=== PATIENT | male | born 1965 | race Caucasian/White ===

== ENCOUNTER 2016-10-10 18:28 | Emergency (ER) | payer OTHER ==
[2016-10-10 18:32] VITALS: BP 155/97
[2016-10-10] MEDS ORDERED: Lidocaine 1% 20 ML MDV INJECT ONE (18:42)
[2016-10-10] MEDS ORDERED: Bacitracin/Neomycin/Polymyxin B Oint 0.9 GM U/D Packet TOP ONE (18:52)
--- NOTE | 2016-10-10 19:13 | EDM.PDOC ---
ED HPI GENERAL MEDICAL PROBLEM - General Chief Complaint: Upper Extremity Injury/Pain Stated Complaint: laceration to right ring finger Time Seen by Provider: 10/10/16 18:49 Source of Information: Reports: Patient - History of Present Illness INITIAL COMMENTS - FREE TEXT/NARRATIVE: 2.5 cm laceration of the right 4th finger from a broken whine glass. Onset: Sudden Duration: Minutes: Location: Reports: Upper Extremity, Right Quality: Reports: Sharp Severity: Moderate Improves with: Reports: None Worsens with: Reports: None Right 4-Ring finger Pain Score (Numeric/FACES): 8 - Related Data Allergies Allergy/AdvReac Type Severity Reaction Status Date / Time Penicillins Allergy Cannot Verified 10/10/16 18:32 Remember Home Meds: Home Meds . [No Known Home Meds] 10/10/16 [History] Past Medical History - Past Health History Medical/Surgical History: Denies Medical/Surgical History Social & Family History - Tobacco Use Smoking Status *Q: Current Every Day Smoker Years of Tobacco use: 40 Packs/Tins Daily: 2 - Recreational Drug Use Recreational Drug Use: Yes Recreational Drug Type: Reports: Marijuana/Hashish Recreational Drug Use Frequency: Socially Review of Systems - Review of Systems Review Of Systems: See Below Constitutional: Reports: No Symptoms Eyes: Reports: No Symptoms Ears: Reports: No Symptoms Nose: Reports: No Symptoms Mouth/Throat: Reports: No Symptoms Respiratory: Reports: No Symptoms Cardiovascular: Reports: No Symptoms GI/Abdominal: Reports: No Symptoms Genitourinary: Reports: No Symptoms Musculoskeletal: Reports: No Symptoms Skin: Reports: No Symptoms Neurological: Reports: No Symptoms Psychiatric: Reports: No Symptoms Trauma Exam - Physical Exam Exam: See Below Text/Narrative:: 2.5 cm laceration of the right 4th finger of the distal phalanges in a crest shape. Exam Limited By: No Limitations General Appearance: Reports: Alert, WD/WN Head: Reports: Atraumatic, Normocephalic Ears: Reports: Normal External Exam Nose: Reports: Normal Inspection Throat/Mouth: Reports: Normal Inspection Neck: Reports: Non-Tender Respiratory Exam: Reports: No Respiratory Distress Cardiovascular: Reports: Normal Peripheral Pulses Extremities: No Evidence of Injury Skin: Reports: Normal Color, Warm/Dry Course - Vital Signs Last Recorded V/S: Last Vital Signs Temp 98.1 F 10/10/16 18:30 Pulse 83 10/10/16 18:30 Resp 20 10/10/16 18:30 BP 155/97 H 10/10/16 18:30 Pulse Ox 97 10/10/16 18:30 - Orders/Labs/Meds Orders: Active Orders 24 hr Category Date Time Status Vaccines to be Administered [RC] PER UNIT ROUTINE Care 10/10/16 19:15 Active Meds: Medications Discontinued Medications Generic Name Dose Route Start Last Admin Trade Name Segundo PRN Reason Stop Dose Admin Diphtheria/Tetanus/Acell Pertussis 0.5 ml 10/10/16 19:15 Adacel IM 10/10/16 19:16 .ONCE ONE Lidocaine HCl 20 ml 10/10/16 18:42 10/10/16 18:52 Xylocaine 1% INJECT 10/10/16 18:43 20 ml ONETIME ONE Administration Neomycin/Polymyxin/Bacitracin 2 each 10/10/16 18:52 10/10/16 19:01 Triple Antibiotic Oint TOP 10/10/16 18:53 2 each ONETIME ONE Administration Departure - Departure Time of Disposition: 19:10 (wound cleaned [facility] wound night cleaner. Lidocaine 2% used to anesthitze wound. using 4-0 nylone wound closed with little dificulty easily acheiving hemostasis. Xeroform quaze, and tube guaze used for dressing. patient tolerated well with no complications noted) Disposition: Home, Self-Care 01 Condition: good Clinical Impression: Laceration - Discharge Information Instructions: Laceration Care, Adult Referrals: Diana rGay PA-C [Primary Care Provider] - Forms: ED Department Discharge Additional Instructions: Watch wound closely for signs of infection. you do not need to get this wound wet. Your stitches need to come out in 7-10 days. Take medications as prescribed. - My Orders Last 24 Hours: My Active Orders 10/10/16 19:15 Vaccines to be Administered [RC] PER UNIT ROUTINE - Assessment/Plan Last 24 Hours: My Active Orders 10/10/16 19:15 Vaccines to be Administered [RC] PER UNIT ROUTINE
[2016-10-10] MEDS ORDERED: Diphtheria,Pertussis(Acell),Tetanus Vaccine 0.5 ML Syringe IM ONE (19:15)
== END 2016-10-10 19:25 | disposition home or self-care (01) ==
LOC: CC.ED 18:28
DX: S61.214A Laceration without foreign body of right ring finger without damage to nail, initial encounter (principal); F17.210 Nicotine dependence, cigarettes, uncomplicated; Z88.0 Allergy status to penicillin; Z23 Encounter for immunization; W25.XXXA Contact with sharp glass, initial encounter
CPT/HCPCS: 12001; 90471; 90715; 99282

== ENCOUNTER 2019-10-22 00:06 | Emergency (ER) | payer MEDICAID, OTHER ==
[2019-10-22 00:11] VITALS: BP 127/69; PULSE 110
--- NOTE | 2019-10-22 00:54 | EDM.PDOC ---
ED HPI GENERAL MEDICAL PROBLEM - General Chief Complaint: Lower Extremity Injury/Pain Stated Complaint: toe pain Time Seen by Provider: 10/22/19 00:30 Source of Information: Reports: Patient History Limitations: Reports: Intoxication - History of Present Illness INITIAL COMMENTS - FREE TEXT/NARRATIVE: Patient presents to ER with complaints of left great toe pain. States "stubbed it yesterday, drank vodka all day to dull the pain and passed out". Woke up with his toe throbbing so thought "must be in ripped open". "was in shock due to the pain". Has not noted any bleeding. Feels toe is swollen. Toenail is chronically discolored. Does have pain with weight bearing. 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 [No Known Home Meds] 10/10/16 [History] Past Medical History - Past Health History Medical/Surgical History: Denies Medical/Surgical History - Past Surgical History HEENT Surgical History: Reports: Other (See Below) Other HEENT Surgeries/Procedures: sebacious cyst removal Social & Family History - Tobacco Use Smoking Status *Q: Current Every Day Smoker Years of Tobacco use: 14 Packs/Tins Daily: 3 - Caffeine Use Caffeine Use: Reports: Coffee, Soda - Alcohol Use Days Per Week of Alcohol Use: 1 Number of Drinks Per Day: 10 Total Drinks Per Week: 10 - Recreational Drug Use Recreational Drug Use: Yes Recreational Drug Type: Reports: Marijuana/Hashish Recreational Drug Use Frequency: Weekly Review of Systems - Review of Systems Review Of Systems: Comprehensive ROS is negative, except as noted in HPI. ED EXAM, GENERAL - Physical Exam Exam: See Below Exam Limited By: No Limitations (is intoxicated but oriented, cooperative) General Appearance: Alert, WD/WN, No Apparent Distress Extremities: Other (left great toe is mildly swollen, bruising noted to medial aspect of toe and under toe along joint line. Tender with palpation and with flexion and extension.) Neurological: Alert, Oriented Skin Exam: Warm, Dry, Ecchymosis Course - Vital Signs Last Recorded V/S: Last Vital Signs Temp 98.8 F 10/22/19 00:07 Pulse 110 H 10/22/19 00:07 Resp 16 10/22/19 00:07 BP 127/69 10/22/19 00:07 Pulse Ox 96 10/22/19 00:07 - Orders/Labs/Meds Orders: Active Orders 24 hr Category Date Time Status Foot 2V Lt [CR] Stat Exams 10/22/19 00:20 Ordered - Re-Assessments/Exams Free Text/Narrative Re-Assessment/Exam: 10/22/19 00:59 Xray is positive for distal fracture of phalanx Departure - Departure Time of Disposition: 00:52 Disposition: Home, Self-Care 01 Condition: Good Clinical Impression: Fractured great toe Qualifiers: Encounter type: initial encounter Fracture type: closed Phalanx: distal Laterality: left - Discharge Information *PRESCRIPTION DRUG MONITORING PROGRAM REVIEWED*: No *COPY OF PRESCRIPTION DRUG MONITORING REPORT IN PATIENT IDALIA: No Instructions: Toe Fracture, [id number] Referrals: PCP,None [Primary Care Provider] - Forms: ED Department Discharge Additional Instructions: 1. Rest 2. Elevate foot 3. Ibuprofen or tylenol for swelling or discomfort 4. Weight bear as tolerated 5. Follow up with primary care provider for recheck in 2-3 weeks 6. Call with questions or concerns. Sepsis Event Note - Evaluation Sepsis Screening Result: No Definite Risk - Focused Exam Vital Signs: Vital Signs Temp Pulse Resp BP Pulse Ox 10/22/19 00:07 98.8 F 110 H 16 127/69 96 Date Exam was Performed: 10/22/19 Time Exam was Performed: 00:54 - My Orders Last 24 Hours: My Active Orders 10/22/19 00:20 Foot 2V Lt [CR] Stat - Assessment/Plan Last 24 Hours: My Active Orders 10/22/19 00:20 Foot 2V Lt [CR] Stat
== END 2019-10-22 01:04 | disposition home or self-care (01) ==
LOC: CC.ED 00:06
DX: S92.422A Displaced fracture of distal phalanx of left great toe, initial encounter for closed fracture (principal); F17.210 Nicotine dependence, cigarettes, uncomplicated; Z88.0 Allergy status to penicillin; W22.8XXA Striking against or struck by other objects, initial encounter
CPT/HCPCS: 73630-LT; 99283-25

== ENCOUNTER 2021-09-16 13:45 | Emergency (ER) | payer MEDICAID ==
[2021-09-16] MEDS ORDERED: methylPREDNISolone Sodium Succinate 125 MG/2 ML SDV IVPUSH STA (14:03)
[2021-09-16] MEDS ORDERED: diphenhydrAMINE 50 MG/ML SDV IVPUSH ONE (14:06)
[2021-09-16] MEDS ORDERED: Famotidine 20 MG/2 ML SDV IVPUSH ONE (15:07)
[2021-09-16] MEDS ORDERED: LORazepam 2 MG/ML Syringe IVPUSH PRN (15:08)
[2021-09-16] MEDS ORDERED: Lactated Ringers 1,000 ML IV SCH (15:15)
[2021-09-16 16:23] VITALS: BP 137/82
[2021-09-16 16:42] VITALS: PULSE 90
== END 2021-09-16 17:38 | disposition home or self-care (01) ==
LOC: CC.ED 13:45
DX: T78.40XA Allergy, unspecified, initial encounter (principal); F17.210 Nicotine dependence, cigarettes, uncomplicated; Z88.0 Allergy status to penicillin
CPT/HCPCS: 71101; 96374; 96375; 99283; 99284; J1200; J2930; J3490

== ENCOUNTER 2022-11-06 11:41 | Emergency (ER) | payer MEDICAID ==
[2022-11-06 11:49] VITALS: BP 122/93; PULSE 113
[2022-11-06 12:14] LABS: APPEARANCE,URINE CLEAR (CLEAR); BASOPHILS ABSOLUTE AUTO 0.04 10^3/uL (0.00-0.50); BASOPHILS PERCENT AUTO 0.3 % (0-1); BILIRUBIN,URINE NEGATIVE (NEGATIVE); COLOR,URINE YELLOW (YELLOW); EOSINOPHILS ABSOLUTE AUTO 0.16 10^3/uL (0.00-1.50); EOSINOPHILS PERCENT AUTO 1.1 % (0-6); GLUCOSE,URINE NEGATIVE (NEGATIVE); HEMATOCRIT 51.3 % (42.0-52.0); HEMOGLOBIN 16.7 g/dL (14.0-18.0); IMMATURE GRAN ABSOLUTE AUTO 0.07 10^3/uL (0.00-0.49); IMMATURE GRAN PERCENT AUTO 0.5 % (0.0-4.9); KETONES,URINE NEGATIVE (NEGATIVE); LEUKOCYTE ESTERASE,URINE NEGATIVE (NEGATIVE); LYMPHOCYTES ABSOLUTE AUTO 2.87 10^3/uL (0.60-5.00); LYMPHOCYTES PERCENT AUTO 19.7 % (24-44); MEAN CORPUSCULAR HEMOGLOBIN 30.8 pg (27.0-32.0); MEAN CORPUSCULAR HGB CONC 32.6 g/dL (32.0-36.0); MEAN CORPUSCULAR VOLUME 94.6 fL (83.0-97.0); MONOCYTES ABSOLUTE AUTO 0.84 10^3/uL (0.00-1.50); MONOCYTES PERCENT AUTO 5.8 % (0-10); NEUTROPHILS ABSOLUTE AUTO 10.58 x10^3/uL (1.80-8.00); NEUTROPHILS PERCENT AUTO 72.6 % (41-71); NITRITE,URINE NEGATIVE (NEGATIVE); OCCULT BLOOD,URINE NEGATIVE (NEGATIVE); PH,URINE 5.5 (4.5-8.0); PLATELET COUNT,PLT 259 10^3/uL (150-400); PROTEIN,URINE NEGATIVE (NEGATIVE); RED BLOOD CELL COUNT 5.42 x10^6/uL (4.50-6.00); UROBILINOGEN,URINE 0.2 EU/dL (0.2-1.0); WHITE BLOOD CELL COUNT,WBC 14.6 10^3/uL (4.0-11.0)
[2022-11-06 12:20] LABS: AMPHETAMINES,URINE NEGATIVE (NEGATIVE); BARBITURATES,URINE NEGATIVE (NEGATIVE); BENZODIAZEPINE,URINE NEGATIVE (NEGATIVE); MDMA (ECSTASY), URINE NEGATIVE (NEGATIVE); METHADONE,URINE NEGATIVE (NEGATIVE); METHAMPHETAMINES,URINE NEGATIVE (NEGATIVE); OPIATES,URINE NEGATIVE (NEGATIVE); OXYCODONE,URINE NEGATIVE (NEGATIVE); PHENCYCLIDINE,URINE NEGATIVE (NEGATIVE); TCA,URINE NEGATIVE (NEGATIVE)
[2022-11-06 12:27] LABS: BILIRUBIN TOTAL 0.4 mg/dL (0.0-1.0); C-REACTIVE PROTEIN 0.49 mg/dL (<=0.30); CALCIUM 8.7 mg/dL (8.4-10.1); EST CRCL DRUG DOSING (CG) 86.8 mL/min; POTASSIUM,K 4.2 mEq/L (3.5-5.0); PROTEIN TOTAL,TP 7.8 g/dL (6.4-8.2)
[2022-11-06] MEDS ORDERED: Acetaminophen 500 MG Tab PO ONE (12:56)
== END 2022-11-06 17:00 | disposition home or self-care (01) ==
LOC: CC.ED 11:41
DX: S82.61XA Displaced fracture of lateral malleolus of right fibula, initial encounter for closed fracture (principal); F10.920 Alcohol use, unspecified with intoxication, uncomplicated; F17.210 Nicotine dependence, cigarettes, uncomplicated; Z88.0 Allergy status to penicillin; W19.XXXA Unspecified fall, initial encounter; W22.8XXA Striking against or struck by other objects, initial encounter
CPT/HCPCS: 36415; 70450; 73610-RT; 80053; 80305-QW; 80307; 81003; 83735; 85025; 86140; 99284; 99285; A9270-GY